=== PATIENT | male | born 1975 | race Caucasian/White ===

== ENCOUNTER 2018-07-13 01:04 | Inpatient (IN) | payer OTHER ==
[2018-07-13] MEDS ORDERED: HYDROmorphone 0.5 MG/0.5 ML SYRINGE IVP STA (02:28)
[2018-07-13] MEDS ORDERED: ONDANSETRON 4 MG/2 ML VIAL IVP STA (02:28)
[2018-07-13] MEDS: SODIUM CHLORIDE 0.9% 1,000 ML IV STA ×2 (02:39→03:52)
[2018-07-13 02:42] LABS: Basophils % (A) 0 %; Eosinophils # (A) 0.2 k/uL (0-0.7); Eosinophils % (A) 1 %; HGB 17.3 gm/dL (13.0-17.5); Lymphocytes # (A) 1.6 k/uL (1.0-4.8); Lymphocytes % (A) 15 %; MCH 34.2 pg (25.0-35.0); MCHC 36.8 g/dL (31.0-37.0); Mean Platelet Volume 8.8; Monocytes # (A) 0.5 k/uL (0-1.0); Monocytes % (A) 4 %; Neutrophils # (A) 8.4 k/uL (1.3-7.7); Neutrophils % (A) 78 %; Platelet Count 196 k/uL (150-450); RBC 5.06 m/uL (4.30-5.90); RDW 14.1 % (11.5-15.5); WBC 10.8 k/uL (3.8-10.6)
[2018-07-13 02:43] LABS: Appearance,Urine Clear (Clear); Bilirubin,Urine Negative (Negative); Blood,Urine Trace (Negative); Color,Urine Light Yellow; Glucose,Urine (UA) 4+ (Negative); Hyaline Casts,Urine 9 /lpf (0-2); Leukocyte Esterase,Urine Negative (Negative); Nitrite,Urine Negative (Negative); PH, Urine 5.5 (5.0-8.0); Protein,Urine 2+ (Negative); RBC,Urine 1 /hpf (0-5); Specific Gravity,Urine 1.028 (1.001-1.035); Urobilinogen,Urine <2.0 mg/dL (<2.0); WBC,Urine <1 /hpf (0-5)
[2018-07-13 03:00] LABS: Ketones,Urine 4+ (Negative)
--- NOTE | 2018-07-13 03:11 | XR ---
EXAM: XR Abdomen, 2 Views CLINICAL HISTORY: None. TECHNIQUE: Frontal view of the abdomen/pelvis with upright view of the abdomen. COMPARISON: No relevant prior studies available. FINDINGS: Intraperitoneal space: No free air. Gastrointestinal tract: Unremarkable. No dilation. 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 IMPRESSION: No acute findings.
[2018-07-13 03:26] LABS: Glucose 435 mg/dL (74-99)
[2018-07-13 03:27] LABS: ALT 34 U/L (21-72); AST 26 U/L (17-59); Albumin 4.6 g/dL (3.5-5.0); Alkaline Phosphatase 122 U/L (38-126); Blood Urea Nitrogen 9 mg/dL (9-20); Calcium 10.1 mg/dL (8.4-10.2); Total Bilirubin 1.1 mg/dL (0.2-1.3); Total Protein 8.1 g/dL (6.3-8.2)
[2018-07-13 03:28] LABS: Chloride 98 mmol/L (98-107); Potassium 5.2 mmol/L (3.5-5.1); Sodium 132 mmol/L (137-145)
[2018-07-13 03:31] LABS: Amylase 550 U/L (30-110); Anion Gap 23 mmol/L; Carbon Dioxide 11 mmol/L (22-30)
[2018-07-13] MEDS ORDERED: SODIUM CHLORIDE 0.9% 1,000 ML IV ONE (03:40)
[2018-07-13] MEDS ORDERED: SODIUM CHLORIDE 0.9% 500 ML 500 ML IV ONE (03:40)
[2018-07-13] MEDS ORDERED: INSULIN REGULAR 100 UNIT in SODIUM CHLORIDE 0.9% 100 ML IV SCH (03:45)
[2018-07-13] MEDS ORDERED: NALOXONE 0.4 MG/ML 1 ML VIAL IV PRN (03:46)
[2018-07-13] MEDS ORDERED: ONDANSETRON 4 MG/2 ML VIAL IVP PRN (03:46)
--- NOTE | 2018-07-13 03:54 | ED ---
Abdominal Pain HPI - General Source: patient Mode of arrival: ambulatory Limitations: no limitations <Esmer Lambert - Last Filed: 07/13/18 03:54> <Shaun Skinner - Last Filed: 07/13/18 07:46> - General Chief Complaint: Abdominal Pain Stated Complaint: Abdominal Pain Time Seen by Provider: 07/13/18 02:10 - History of Present Illness Initial Comments: 43-year-old male patient presented to the emergency department today for evaluation of upper abdominal pain. The patient states the pain started around 9 PM this evening. Describes it as a intense cramping type pain. Denies any radiation of the pain through to his back. Patient states he was nauseated and did have a couple episodes of vomiting. Denies hematemesis. Denies any constipation or diarrhea. States last bowel movement was yesterday and was normal for him. Patient denies history of acid reflux, denies excessive use of NSAIDs. Denies any fever or chills with this. Patient denies history of similar symptoms. Denies any recent travel or sick contacts. Patient denies any recent rash, fever, chills, shortness breath, chest pain, back pain, numbness, tingling, dizziness, weakness, hematuria, dysuria, urinary urgency, urinary frequency, headache, visual changes, or any other complaints. (Esmer Lambert) - Related Data Home Medications Medication Instructions Recorded Confirmed No Known Home Medications 07/13/18 07/13/18 Allergies Allergy/AdvReac Type Severity Reaction Status Date / Time No Known Allergies Allergy Verified 07/13/18 07:16 Review of Systems ROS Other: All systems not noted in ROS Statement are negative. <Esmer Lambert - Last Filed: 07/13/18 03:54> ROS Other: All systems not noted in ROS Statement are negative. <Shaun Skinner - Last Filed: 07/13/18 07:46> ROS Statement: Those systems with pertinent positive or pertinent negative responses have been documented in the HPI. Past Medical History Past Medical History: No Reported History History of Any Multi-Drug Resistant Organisms: None Reported Past Surgical History: No Surgical Hx Reported Past Psychological History: No Psychological Hx Reported Smoking Status: Current some day smoker Past Alcohol Use History: Rare Past Drug Use History: None Reported <Esmer Lambert - Last Filed: 07/13/18 03:54> General Exam Limitations: no limitations General appearance: alert, in no apparent distress, other (This is a well- developed, well-nourished adult male patient in no acute distress. Vital signs upon presentation are temperature 97.4F, pulse 117, respirations 20, blood pressure 145/112, pulse ox 98% on room air.) Eye exam: Present: normal appearance, PERRL, EOMI. Absent: scleral icterus, conjunctival injection, periorbital swelling ENT exam: Present: normal exam, normal oropharynx, mucous membranes moist Respiratory exam: Present: normal lung sounds bilaterally. Absent: respiratory distress, wheezes, rales, rhonchi, stridor Cardiovascular Exam: Present: normal rhythm, tachycardia, normal heart sounds. Absent: systolic murmur, diastolic murmur, rubs, gallop, clicks GI/Abdominal exam: Present: soft, tenderness (Mild midepigastric tenderness), normal bowel sounds. Absent: distended, guarding, rebound, rigid Neurological exam: Present: alert, oriented X3, CN II-XII intact Psychiatric exam: Present: normal affect, normal mood Skin exam: Present: warm, dry, intact, normal color. Absent: rash <Esmer Lambert - Last Filed: 07/13/18 03:54> Course Vital Signs 07/13/18 07/13/18 07/13/18 01:11 04:00 05:00 Temperature 97.4 F L 97.7 F Pulse Rate 117 H 98 98 Pulse Rate [ Pulse Oximetery ] Respiratory 20 20 20 Rate Blood Pressure 145/112 131/98 133/94 Blood Pressure [Right Arm] O2 Sat by Pulse 98 99 97 Oximetry 07/13/18 05:31 Temperature 98.6 F Pulse Rate Pulse Rate [ 105 H Pulse Oximetery ] Respiratory 18 Rate Blood Pressure Blood Pressure 139/95 [Right Arm] O2 Sat by Pulse 98 Oximetry Medical Decision Making - Lab Data Result diagrams: 07/13/18 02:14 07/13/18 02:14 - Radiology Data Radiology results: report reviewed, image reviewed <Esmer Lambert - Last Filed: 07/13/18 03:54> - Lab Data Result diagrams: 07/13/18 02:14 07/13/18 02:14 <Shaun Skinner - Last Filed: 07/13/18 07:46> - Medical Decision Making 43-year-old male patient presented to the emergency department today for evaluation of upper abdominal pain and nausea. Physical examination did reveal mild midepigastric tenderness. Labs reviewed and did reveal elevated blood sugar at 435, elevated amylase at 550. Patient also had 4+ ketones and 4+ gl ucose in his urine. Patient states that he did have history of insulin resistance was on medication for a short time but was able to reverse this with diet control. Patient does admit to increased thirst and urination over the last couple weeks. Patient's lipase is unable to be done due to a lipemic specimen, we will redraw this in the morning after patient has been fasting. Elevated amylase patient most likely has presence of pancreatitis. Patient will be admitted for IV fluids, insulin drip, and pain management. He will be admitted to Dr. Weber. (Esmer Lambert) I saw this patient in conjunction with the physician budget assistant. I performed independent history and physical exam. Agree with case management. (Shaun Skinner) - Lab Data Lab Results 07/13/18 07/13/18 07/13/18 Range/Units 02:14 02:14 02:14 WBC 10.8 H (3.8-10.6) k/uL RBC 5.06 (4.30-5.90) m/uL Hgb 17.3 (13.0-17.5) gm/dL Hct 47.0 (39.0-53.0) % MCV 93.0 (80.0-100.0) fL MCH 34.2 (25.0-35.0) pg MCHC 36.8 (31.0-37.0) g/dL RDW 14.1 (11.5-15.5) % Plt Count 196 (150-450) k/uL Neutrophils % 78 % Lymphocytes % 15 % Monocytes % 4 % Eosinophils % 1 % Basophils % 0 % Neutrophils # 8.4 H (1.3-7.7) k/uL Lymphocytes # 1.6 (1.0-4.8) k/uL Monocytes # 0.5 (0-1.0) k/uL Eosinophils # 0.2 (0-0.7) k/uL Basophils # 0.0 (0-0.2) k/uL Sodium 132 L (137-145) mmol/L Potassium 5.2 H (3.5-5.1) mmol/L Chloride 98 (98-107) mmol/L Carbon Dioxide 11 L (22-30) mmol/L Anion Gap 23 mmol/L BUN 9 (9-20) mg/dL Creatinine 0.83 (0.66-1.25) mg/dL Est GFR (CKD-EPI)AfAm >90 (>60 ml/min/1.73 sqM) Est GFR (CKD-EPI)NonAf >90 (>60 ml/min/1.73 sqM) Glucose 435 H (74-99) mg/dL Calcium 10.1 (8.4-10.2) mg/dL Total Bilirubin 1.1 (0.2-1.3) mg/dL AST 26 (17-59) U/L ALT 34 (21-72) U/L Alkaline Phosphatase 122 (38-126) U/L Troponin I <0.012 (0.000-0.034) ng/mL Total Protein 8.1 (6.3-8.2) g/dL Albumin 4.6 (3.5-5.0) g/dL Amylase 550 H* (30-110) U/L Lipase (23-300) U/L Urine Color Urine Appearance (Clear) Urine pH (5.0-8.0) Ur Specific [place] (1.001-1.035) Urine Protein (Negative) Urine Glucose (UA) (Negative) Urine Ketones (Negative) Urine Blood (Negative) Urine Nitrite (Negative) Urine Bilirubin (Negative) Urine Urobilinogen (<2.0) mg/dL Ur Leukocyte Esterase (Negative) Urine RBC (0-5) /hpf Urine WBC (0-5) /hpf Hyaline Casts (0-2) /lpf Acetone, Qual (Negative) 07/13/18 07/13/18 Range/Units 02:14 02:14 WBC (3.8-10.6) k/uL RBC (4.30-5.90) m/uL Hgb (13.0-17.5) gm/dL Hct (39.0-53.0) % MCV (80.0-100.0) fL MCH (25.0-35.0) pg MCHC (31.0-37.0) g/dL RDW (11.5-15.5) % Plt Count (150-450) k/uL Neutrophils % % Lymphocytes % % Monocytes % % Eosinophils % % Basophils % % Neutrophils # (1.3-7.7) k/uL Lymphocytes # (1.0-4.8) k/uL Monocytes # (0-1.0) k/uL Eosinophils # (0-0.7) k/uL Basophils # (0-0.2) k/uL Sodium (137-145) mmol/L Potassium (3.5-5.1) mmol/L Chloride (98-107) mmol/L Carbon Dioxide (22-30) mmol/L Anion Gap mmol/L BUN (9-20) mg/dL Creatinine (0.66-1.25) mg/dL Est GFR (CKD-EPI)AfAm (>60 ml/min/1.73 sqM) Est GFR (CKD-EPI)NonAf (>60 ml/min/1.73 sqM) Glucose (74-99) mg/dL Calcium (8.4-10.2) mg/dL Total Bilirubin (0.2-1.3) mg/dL AST (17-59) U/L ALT (21-72) U/L Alkaline Phosphatase (38-126) U/L Troponin I (0.000-0.034) ng/mL Total Protein (6.3-8.2) g/dL Albumin (3.5-5.0) g/dL Amylase (30-110) U/L Lipase (23-300) U/L Urine Color Light Yellow Urine Appearance Clear (Clear) Urine pH 5.5 (5.0-8.0) Ur Specific [place] 1.028 (1.001-1.035) Urine Protein 2+ H (Negative) Urine Glucose (UA) 4+ H (Negative) Urine Ketones 4+ H (Negative) Urine Blood Trace H (Negative) Urine Nitrite Negative (Negative) Urine Bilirubin Negative (Negative) Urine Urobilinogen <2.0 (<2.0) mg/dL Ur Leukocyte Esterase Negative (Negative) Urine RBC 1 (0-5) /hpf Urine WBC <1 (0-5) /hpf Hyaline Casts 9 H (0-2) /lpf Acetone, Qual Positive (Negative) - Radiology Data 2 views of the abdomen are obtained. Report reviewed in its entirety. Impression by Dr. Rosas shows no acute findings. (Esmer Lambert) Disposition Decision to Admit Reason: Admit from EC Decision Date: 07/13/18 Decision Time: 03:57 <Esmer Lambert - Last Filed: 07/13/18 03:54> <Shaun Skinner - Last Filed: 07/13/18 07:46> Clinical Impression: Diabetes mellitus, new onset, Acute pancreatitis Disposition: ADMITTED IP TO THIS [facility] Condition: Serious
[2018-07-13] MEDS: SODIUM CHLORIDE 0.9% 1,000 ML IV SCH ×2 (03:56→13:32)
[2018-07-13] MEDS: INSULIN REGULAR 100 UNIT in SODIUM CHLORIDE 0.9% 100 ML IV SCH ×2 (04:09→15:24)
[2018-07-13 05:12] LABS: Glucose,Whole Blood 343 mg/dL (75-99)
[2018-07-13 06:13] LABS: Glucose,Whole Blood 338 mg/dL (75-99)
[2018-07-13 07:33] LABS: Glucose,Whole Blood 290 mg/dL (75-99)
[2018-07-13 08:21] LABS: Glucose,Whole Blood 294 mg/dL (75-99)
[2018-07-13 10:20] LABS: Glucose,Whole Blood 250 mg/dL (75-99)
[2018-07-13 10:30] LABS: Glucose,Whole Blood 234 mg/dL (75-99)
[2018-07-13 11:38] LABS: Glucose,Whole Blood 227 mg/dL (75-99)
--- NOTE | 2018-07-13 12:24 | US ---
EXAMINATION TYPE: US abdomen limited DATE OF EXAM: 07/13/2018 COMPARISON: NONE CLINICAL HISTORY: Acute Pancreatitis. Pt states ABD pressure, pancreatitis EXAM MEASUREMENTS: Liver Length: 18.4 cm Gallbladder Wall: 0.2 cm CBD: 0.4 cm Right Kidney: 12.5 x 5.1 x 5.7 cm Pancreas: 3mm duct visualized, pancrease appeared heterogeneous/attenuating Liver: Difficult to penetrate, probable fatty sparing near GB, enlarged Gallbladder: wnl Evidence for sonographic Chirinos's sign: No CBD: wnl Right Kidney: wnl, lower pole partially gassed out and cortical medullary differentiation is maintai michi. There is no ascites. IMPRESSION: Probable hepatic steatosis, hepatomegaly. Some limitations the exam.
[2018-07-13 12:33] LABS: Glucose,Whole Blood 244 mg/dL (75-99)
[2018-07-13 13:15] LABS: Chloride 109 mmol/L (98-107); Potassium 4.7 mmol/L (3.5-5.1); Sodium 135 mmol/L (137-145)
[2018-07-13 13:23] LABS: Glucose,Whole Blood 236 mg/dL (75-99)
[2018-07-13 14:34] LABS: Anion Gap 16 mmol/L
[2018-07-13 14:35] LABS: Blood Urea Nitrogen 8 mg/dL (9-20); Calcium 8.8 mg/dL (8.4-10.2); Carbon Dioxide 10 mmol/L (22-30); Glucose 251 mg/dL (74-99); Total Protein 7.3 g/dL (6.3-8.2)
[2018-07-13 14:36] LABS: ALT 35 U/L (21-72); AST 33 U/L (17-59); Albumin 3.8 g/dL (3.5-5.0); Alkaline Phosphatase 84 U/L (38-126); Total Bilirubin 0.9 mg/dL (0.2-1.3)
[2018-07-13 14:41] LABS: Glucose,Whole Blood 253 mg/dL (75-99)
[2018-07-13] MEDS: D5-0.45% NACL WITH KCL 20MEQ/L 1,000 ML IV SCH ×2 (15:24→17:42)
[2018-07-13 15:36] LABS: Glucose,Whole Blood 248 mg/dL (75-99)
[2018-07-13] MEDS ORDERED: ACETAMINOPHEN TAB 325 MG TAB PO PRN (16:09)
[2018-07-13 16:38] LABS: Glucose,Whole Blood 242 mg/dL (75-99)
[2018-07-13 17:13] LABS: HDL Cholesterol 32 mg/dL (40-60)
[2018-07-13 17:21] LABS: Cholesterol 643 mg/dL (<200)
[2018-07-13 17:26] LABS: Lipase 3662 U/L (23-300)
[2018-07-13 17:30] LABS: Amylase 422 U/L (30-110)
[2018-07-13 17:40] LABS: Glucose,Whole Blood 249 mg/dL (75-99)
[2018-07-13 17:48] LABS: Basophils % (A) 0 %; Eosinophils # (A) 0.1 k/uL (0-0.7); Eosinophils % (A) 1 %; HCT 40.3 % (39.0-53.0); Lymphocytes # (A) 0.8 k/uL (1.0-4.8); Lymphocytes % (A) 18 %; MCH 36.9 pg (25.0-35.0); MCV 92.9 fL (80.0-100.0); Mean Platelet Volume 8.5; Monocytes # (A) 0.2 k/uL (0-1.0); Monocytes % (A) 4 %; Neutrophils # (A) 3.5 k/uL (1.3-7.7); Neutrophils % (A) 75 %; Platelet Count 185 k/uL (150-450); RBC 4.34 m/uL (4.30-5.90); RDW 13.9 % (11.5-15.5); WBC 4.6 k/uL (3.8-10.6)
[2018-07-13 17:49] LABS: MCHC 39.7 g/dL (31.0-37.0); Triglycerides 3309 mg/dL (<150)
[2018-07-13 18:07] LABS: ALT 33 U/L (21-72); AST 24 U/L (17-59); Albumin 3.7 g/dL (3.5-5.0); Alkaline Phosphatase 93 U/L (38-126); Anion Gap 14 mmol/L; Blood Urea Nitrogen 7 mg/dL (9-20); Calcium 8.5 mg/dL (8.4-10.2); Chloride 110 mmol/L (98-107); Glucose 251 mg/dL (74-99); Potassium 4.4 mmol/L (3.5-5.1); Sodium 133 mmol/L (137-145); Total Bilirubin 0.9 mg/dL (0.2-1.3); Total Protein 7.1 g/dL (6.3-8.2)
[2018-07-13 18:16] LABS: Carbon Dioxide 9 mmol/L (22-30)
[2018-07-13] MEDS: INSULIN ASPART (NovoLOG) 100 UNIT/ML VIAL SQ SCH (18:32)
[2018-07-13 18:43] LABS: Glucose,Whole Blood 242 mg/dL (75-99)
--- NOTE | 2018-07-13 19:04 | HP ---
HISTORY AND PHYSICAL CHIEF COMPLAINT: Abdominal pain. HISTORY OF PRESENT ILLNESS: This is the first admission for this 43-year-old white male. He came to the emergency room with epigastric and back pain and was found to have pancreatitis. He also was found to have elevated blood sugar. He has been told in the past the had "insulin resistance." He has had some nausea and vomiting. He has had no hematemesis, melena, hematochezia, etc. REVIEW OF SYSTEMS: He has had no other complaints. He has had no excessive thirst, blurred vision, history of hypertension, palpitations, frequent urination, dysuria, hematuria, etc. Past medical history, family history, personal and social histories are unremarkable. He has had no surgery and he is not on any medication. He is not allergic to any. He smokes a pack of cigarettes a day. PHYSICAL EXAMINATION: Blood pressure 125/114 with a pulse of 96, respirations of 36 and she is afebrile. In general, he appeared to be slightly pale. Skin was dry. Head, ears, eyes, nose, mouth, and throat were normal and neck veins not distended. Thyroid is not enlarged. Chest is clear. Cardiac exam demonstrates normal sinus rhythm and no murmurs or extra sounds. Abdomen is soft, nontender without any visceromegaly or masses. Bowel sounds present. Extremities normal. Neurological is intact. IMPRESSION: 1. Pancreatitis. 2. New onset diabetes mellitus. 3. Hypertension. PLAN: 1. Bed rest. 2. IV fluids. 3. Diabetic teaching. 4. Follow blood sugars. 5. Follow pancreatitis. MMODL / IJN: [id number] /
[2018-07-13 19:39] LABS: Glucose,Whole Blood 247 mg/dL (75-99)
[2018-07-13] MEDS ORDERED: ENALAPRILAT 1.25 MG/ML 1 ML VIAL IVP PRN (19:48)
[2018-07-13] MEDS: HYDROcodone/APAP 5-325MG 1 EACH TAB PO PRN (20:23)
[2018-07-13] MEDS: FENOFIBRATE 160 MG TAB PO SCH (20:23)
[2018-07-13 20:32] LABS: Glucose,Whole Blood 259 mg/dL (75-99)
[2018-07-13 20:52] LABS: ALT 36 U/L (21-72); AST 19 U/L (17-59); Albumin 3.6 g/dL (3.5-5.0); Alkaline Phosphatase 88 U/L (38-126); Anion Gap 13 mmol/L; Blood Urea Nitrogen 8 mg/dL (9-20); Calcium 8.4 mg/dL (8.4-10.2); Carbon Dioxide 12 mmol/L (22-30); Chloride 109 mmol/L (98-107); Glucose 233 mg/dL (74-99); Potassium 4.2 mmol/L (3.5-5.1); Sodium 134 mmol/L (137-145); Total Bilirubin 0.8 mg/dL (0.2-1.3); Total Protein 6.9 g/dL (6.3-8.2)
[2018-07-13] MEDS: INSULIN DETEMIR (LEVEMIR) 100 UNIT/ML SYR SQ SCH (21:34)
[2018-07-13 21:47] LABS: Glucose,Whole Blood 264 mg/dL (75-99)
[2018-07-13 22:51] LABS: Glucose,Whole Blood 234 mg/dL (75-99)
[2018-07-13 23:44] LABS: Glucose,Whole Blood 271 mg/dL (75-99)
[2018-07-14 00:33] LABS: Glucose,Whole Blood 229 mg/dL (75-99)
[2018-07-14 01:09] LABS: ALT 28 U/L (21-72); AST 18 U/L (17-59); Albumin 3.3 g/dL (3.5-5.0); Alkaline Phosphatase 80 U/L (38-126); Anion Gap 12 mmol/L; Blood Urea Nitrogen 8 mg/dL (9-20); Calcium 8.4 mg/dL (8.4-10.2); Carbon Dioxide 14 mmol/L (22-30); Chloride 108 mmol/L (98-107); Glucose 229 mg/dL (74-99); Potassium 3.9 mmol/L (3.5-5.1); Sodium 134 mmol/L (137-145); Total Bilirubin 0.8 mg/dL (0.2-1.3); Total Protein 6.2 g/dL (6.3-8.2)
[2018-07-14 01:57] LABS: Glucose,Whole Blood 223 mg/dL (75-99)
[2018-07-14] MEDS: SODIUM CHLORIDE 0.9% 1,000 ML IV SCH ×3 (02:11→20:36)
[2018-07-14 02:56] LABS: Glucose,Whole Blood 200 mg/dL (75-99)
[2018-07-14] MEDS: D5-0.45% NACL WITH KCL 20MEQ/L 1,000 ML IV SCH ×3 (03:27→14:54)
[2018-07-14] MEDS: INSULIN REGULAR 100 UNIT in SODIUM CHLORIDE 0.9% 100 ML IV SCH ×2 (03:27→12:38)
[2018-07-14 03:57] LABS: Glucose,Whole Blood 203 mg/dL (75-99)
[2018-07-14 05:15] LABS: Glucose,Whole Blood 189 mg/dL (75-99)
[2018-07-14 05:52] LABS: Glucose,Whole Blood 185 mg/dL (75-99)
[2018-07-14 06:02] LABS: ALT 38 U/L (21-72); AST 21 U/L (17-59); Albumin 3.2 g/dL (3.5-5.0); Alkaline Phosphatase 70 U/L (38-126); Anion Gap 8 mmol/L; Blood Urea Nitrogen 9 mg/dL (9-20); Calcium 8.3 mg/dL (8.4-10.2); Carbon Dioxide 17 mmol/L (22-30); Chloride 108 mmol/L (98-107); Glucose 156 mg/dL (74-99); Lipase 1089 U/L (23-300); Sodium 133 mmol/L (137-145); Total Bilirubin 0.8 mg/dL (0.2-1.3)
[2018-07-14] MEDS: INSULIN ASPART (NovoLOG) 100 UNIT/ML VIAL SQ SCH ×5 (06:31→21:15)
[2018-07-14 06:42] LABS: Glucose,Whole Blood 176 mg/dL (75-99)
[2018-07-14 07:04] LABS: Glucose,Whole Blood 165 mg/dL (75-99)
[2018-07-14 08:18] LABS: Glucose,Whole Blood 141 mg/dL (75-99)
[2018-07-14] MEDS: FENOFIBRATE 160 MG TAB PO SCH (08:47)
[2018-07-14 09:14] LABS: Glucose,Whole Blood 135 mg/dL (75-99)
[2018-07-14 10:06] LABS: Glucose,Whole Blood 179 mg/dL (75-99)
[2018-07-14 11:18] LABS: Glucose,Whole Blood 195 mg/dL (75-99)
[2018-07-14 11:51] LABS: Glucose,Whole Blood 222 mg/dL (75-99)
[2018-07-14 12:46] LABS: ALT 32 U/L (21-72); AST 21 U/L (17-59); Albumin 2.9 g/dL (3.5-5.0); Alkaline Phosphatase 68 U/L (38-126); Anion Gap 8 mmol/L; Blood Urea Nitrogen 9 mg/dL (9-20); Calcium 8.1 mg/dL (8.4-10.2); Carbon Dioxide 19 mmol/L (22-30); Chloride 106 mmol/L (98-107); Glucose 210 mg/dL (74-99); Potassium 4.2 mmol/L (3.5-5.1); Sodium 133 mmol/L (137-145); Total Bilirubin 0.9 mg/dL (0.2-1.3); Total Protein 5.6 g/dL (6.3-8.2)
--- NOTE | 2018-07-14 12:52 | P.CONS ---
History of Present Illness - Reason for Consult Consult date: 07/14/18 Abdominal pain Requesting physician: Joaquin Weber - Chief Complaint Abdominal pain - History of Present Illness 43-year-old male admitted with crampy upper abdominal pain that started yesterday with nausea vomiting. Denies hematemesis hematochezia melena diarrhea or constipation. Ultrasound abdomen possible hepatic steatosis hepatomegaly. Gallbladder within normal limits. CBD 0.4 cm. Admission white count 10.8 present in 4.6. Hemoglobin 16. Platelet 185. MCV 92. Sodium 133. Potassium 4.4. BUN 7. Creatinine 0.4. LFTs within normal limits. Lipase 3662. Amylase 550. Triglycerides 3309. Serum glucose 200-300 range. No history of pancreatitis. No history of NSAIDs or alcohol. Known history of hypertriglyceridemia with no medical maintenance. No history of documented diabetes mellitus. Presently feels bloated but pain is improved. Afebrile. Review of Systems Constitutional: Denies fever, chills, sweats, weight gain, or loss. HEENT: Negative for migraines, blurred vision or loss, earaches, drainage, tinnitus, oral mucosal lesions, dysphagia, or odynophagia. Cardiac: Negative for chest pain, arrhythmias, or palpitation. Respiratory: Negative for shortness of breath, hemoptysis, cough, or sputum p roduction. Gastrointestinal: See HPI for pertinent findings. Genitourinary: Negative for hematuria, urgency, frequency, polyuria, dysuria, or penile discharge. Musculoskeletal: Negative for muscle aches, swelling, arthritis, and arthralgias. Neurologic: Negative for stroke or TIA. Endocrine: Negative for thyroid problems. Skin: Negative for rash or itching. Psychiatric: Negative history for depression and anxiety Past Medical History Past Medical History: No Reported History History of Any Multi-Drug Resistant Organisms: None Reported Past Surgical History: No Surgical Hx Reported Past Anesthesia/Blood Transfusion Reactions: No Reported Reaction Past Psychological History: No Psychological Hx Reported Smoking Status: Former smoker Past Alcohol Use History: Rare Past Drug Use History: None Reported - Past Family History Mother Family Medical History: Musculoskeletal Disorder Additional Family Medical History / Comment(s): MS Father Family Medical History: No Reported History Medications and Allergies Home Medications Medication Instructions Recorded Confirmed Type No Known Home Medications 07/13/18 07/13/18 History Allergies Allergy/AdvReac Type Severity Reaction Status Date / Time No Known Allergies Allergy Verified 07/13/18 07:16 Physical Exam Vitals: Vital Signs Temp Pulse Resp BP Pulse Ox 07/14/18 11:41 98.3 F 114 H 18 119/82 96 07/14/18 08:00 98.4 F 122 H 18 130/84 98 07/14/18 04:00 16 07/14/18 03:51 98.6 F 117 H 16 136/91 97 07/13/18 23:44 98.4 F 120 H 16 124/86 95 07/13/18 20:12 97.9 F 130 H 15 140/91 95 07/13/18 15:20 100.5 F H 122 H 16 152/106 95 Intake and Output 07/13/18 07/14/18 07/14/18 22:59 06:59 14:59 Intake Total 72.417 48.183 237.633 Output Total 400 Balance -327.583 48.183 237.633 Intake: Intake, IV Titration 72.417 48.183 57.633 Amount Insulin Regular 100 unit 72.417 48.183 57.633 In Sodium Chloride 0.9% 100 ml @ 0.1 UNIT/KG/HR 9 .071 mls/hr IV .[id number] [facility] Rx#:[id number] Oral 180 Output: Urine 400 Other: Voiding Method Toilet Toilet # Voids 1 0 # Bowel Movements 0 Weight 92.8 kg General appearance: The patient is alert, oriented, in no acute distress. HET: Head is normocephalic and atraumatic. Pupils are equal and reactive. Oropharynx is clear without lesions. Neck: Supple without lymphadenopathy. Trachea midline. Heart: S1 S2. Regular rate and rhythm. Lungs: No crackles or wheezes are heard. Abdomen: Soft, mildly tender midepigastrium with bile bloatedness with bowel sounds. No peritoneal signs. No palpable organomegaly or masses. Extremities: Normal skin color and turgor. No cyanosis, rash, ulceration, clubbing, or edema. Radial and pedal pulses are 2/4 bilaterally. Neurological: No focal deficits. Strength and sensation are grossly intact. Results CBC & Chem 7: 07/13/18 16:38 07/14/18 12:12 Labs: Abnormal Lab Results - Last 24 Hours (Table) 07/13/18 07/13/1819 Range/Units 12:30 12:43 13:21 MCH (25.0-35.0) pg MCHC (31.0-37.0) g/dL Lymphocytes # (1.0-4.8) k/uL Sodium 135 L (137-145) mmol/L Chloride 109 H (98-107) mmol/L Carbon Dioxide 10 L (22-30) mmol/L BUN 8 L (9-20) mg/dL Creatinine 0.53 L (0.66-1.25) mg/dL Glucose 251 H (74-99) mg/dL POC Glucose (mg/dL) 244 H 236 H (75-99) mg/dL Calcium (8.4-10.2) mg/dL Total Protein (6.3-8.2) g/dL Albumin (3.5-5.0) g/dL Triglycerides (<150) mg/dL Cholesterol (<200) mg/dL HDL Cholesterol (40-60) mg/dL Amylase (30-110) U/L Lipase (23-300) U/L 07/13/18 07/13/18 07/13/18 Range/Units 14:39 15:30 16:35 MCH (25.0-35.0) pg MCHC (31.0-37.0) g/dL Lymphocytes # (1.0-4.8) k/uL Sodium (137-145) mmol/L Chloride (98-107) mmol/L Carbon Dioxide (22-30) mmol/L BUN (9-20) mg/dL Creatinine (0.66-1.25) mg/dL Glucose (74-99) mg/dL POC Glucose (mg/dL) 253 H 248 H 242 H (75-99) mg/dL Calcium (8.4-10.2) mg/dL Total Protein (6.3-8.2) g/dL Albumin (3.5-5.0) g/dL Triglycerides (<150) mg/dL Cholesterol (<200) mg/dL HDL Cholesterol (40-60) mg/dL Amylase (30-110) U/L Lipase (23-300) U/L 07/13/18 07/13/18 07/13/18 Range/Units 16:38 16:38 16:38 MCH 36.9 H (25.0-35.0) pg MCHC 39.7 H (31.0-37.0) g/dL Lymphocytes # 0.8 L (1.0-4.8) k/uL Sodium 133 L (137-145) mmol/L Chloride 110 H (98-107) mmol/L Carbon Dioxide 9 L* (22-30) mmol/L BUN 7 L (9-20) mg/dL Creatinine 0.48 L (0.66-1.25) mg/dL Glucose 251 H (74-99) mg/dL POC Glucose (mg/dL) (75-99) mg/dL Calcium (8.4-10.2) mg/dL Total Protein (6.3-8.2) g/dL Albumin (3.5-5.0) g/dL Triglycerides 3309 H (<150) mg/dL Cholesterol 643 H (<200) mg/dL HDL Cholesterol 32 L (40-60) mg/dL Amylase 422 H* (30-110) U/L Lipase 3662 H (23-300) U/L 07/13/18 07/13/18 07/13/18 Range/Units 17:36 18:39 19:35 MCH (25.0-35.0) pg MCHC (31.0-37.0) g/dL Lymphocytes # (1.0-4.8) k/uL Sodium (137-145) mmol/L Chloride (98-107) mmol/L Carbon Dioxide (22-30) mmol/L BUN (9-20) mg/dL Creatinine (0.66-1.25) mg/dL Glucose (74-99) mg/dL POC Glucose (mg/dL) 249 H 242 H 247 H (75-99) mg/dL Calcium (8.4-10.2) mg/dL Total Protein (6.3-8.2) g/dL Albumin (3.5-5.0) g/dL Triglycerides (<150) mg/dL Cholesterol (<200) mg/dL HDL Cholesterol (40-60) mg/dL Amylase (30-110) U/L Lipase (23-300) U/L 07/13/18 07/13/18 07/13/18 Range/Units 20:25 20:29 21:45 MCH (25.0-35.0) pg MCHC (31.0-37.0) g/dL Lymphocytes # (1.0-4.8) k/uL Sodium 134 L (137-145) mmol/L Chloride 109 H (98-107) mmol/L Carbon Dioxide 12 L (22-30) mmol/L BUN 8 L (9-20) mg/dL Creatinine 0.65 L (0.66-1.25) mg/dL Glucose 233 H (74-99) mg/dL POC Glucose (mg/dL) 259 H 264 H (75-99) mg/dL Calcium (8.4-10.2) mg/dL Total Protein (6.3-8.2) g/dL Albumin (3.5-5.0) g/dL Triglycerides (<150) mg/dL Cholesterol (<200) mg/dL HDL Cholesterol (40-60) mg/dL Amylase (30-110) U/L Lipase (23-300) U/L 07/13/18 07/13/18 07/14/18 Range/Units 22:49 23:34 00:28 MCH (25.0-35.0) pg MCHC (31.0-37.0) g/dL Lymphocytes # (1.0-4.8) k/uL Sodium 134 L (137-145) mmol/L Chloride 108 H (98-107) mmol/L Carbon Dioxide 14 L (22-30) mmol/L BUN 8 L (9-20) mg/dL Creatinine 0.55 L (0.66-1.25) mg/dL Glucose 229 H (74-99) mg/dL POC Glucose (mg/dL) 234 H 271 H (75-99) mg/dL Calcium (8.4-10.2) mg/dL Total Protein 6.2 L (6.3-8.2) g/dL Albumin 3.3 L (3.5-5.0) g/dL Triglycerides (<150) mg/dL Cholesterol (<200) mg/dL HDL Cholesterol (40-60) mg/dL Amylase (30-110) U/L Lipase (23-300) U/L 07/14/18 07/14/18 07/14/18 Range/Units 00:31 01:47 02:39 MCH (25.0-35.0) pg MCHC (31.0-37.0) g/dL Lymphocytes # (1.0-4.8) k/uL Sodium (137-145) mmol/L Chloride (98-107) mmol/L Carbon Dioxide (22-30) mmol/L BUN (9-20) mg/dL Creatinine (0.66-1.25) mg/dL Glucose (74-99) mg/dL POC Glucose (mg/dL) 229 H 223 H 200 H (75-99) mg/dL Calcium (8.4-10.2) mg/dL Total Protein (6.3-8.2) g/dL Albumin (3.5-5.0) g/dL Triglycerides (<150) mg/dL Cholesterol (<200) mg/dL HDL Cholesterol (40-60) mg/dL Amylase (30-110) U/L Lipase (23-300) U/L 07/14/18 07/14/18 07/14/18 Range/Units 03:45 04:49 05:37 MCH (25.0-35.0) pg MCHC (31.0-37.0) g/dL Lymphocytes # (1.0-4.8) k/uL Sodium 133 L (137-145) mmol/L Chloride 108 H (98-107) mmol/L Carbon Dioxide 17 L (22-30) mmol/L BUN (9-20) mg/dL Creatinine (0.66-1.25) mg/dL Glucose 156 H (74-99) mg/dL POC Glucose (mg/dL) 203 H 189 H (75-99) mg/dL Calcium 8.3 L (8.4-10.2) mg/dL Total Protein 6.0 L (6.3-8.2) g/dL Albumin 3.2 L (3.5-5.0) g/dL Triglycerides (<150) mg/dL Cholesterol (<200) mg/dL HDL Cholesterol (40-60) mg/dL Amylase (30-110) U/L Lipase 1089 H (23-300) U/L 07/14/18 07/14/18 07/14/18 Range/Units 05:49 06:38 07:02 MCH (25.0-35.0) pg MCHC (31.0-37.0) g/dL Lymphocytes # (1.0-4.8) k/uL Sodium (137-145) mmol/L Chloride (98-107) mmol/L Carbon Dioxide (22-30) mmol/L BUN (9-20) mg/dL Creatinine (0.66-1.25) mg/dL Glucose (74-99) mg/dL POC Glucose (mg/dL) 185 H 176 H 165 H (75-99) mg/dL Calcium (8.4-10.2) mg/dL Total Protein (6.3-8.2) g/dL Albumin (3.5-5.0) g/dL Triglycerides (<150) mg/dL Cholesterol (<200) mg/dL HDL Cholesterol (40-60) mg/dL Amylase (30-110) U/L Lipase (23-300) U/L 07/14/18 07/14/18 07/14/18 Range/Units 08:06 09:13 10:04 MCH (25.0-35.0) pg MCHC (31.0-37.0) g/dL Lymphocytes # (1.0-4.8) k/uL Sodium (137-145) mmol/L Chloride (98-107) mmol/L Carbon Dioxide (22-30) mmol/L BUN (9-20) mg/dL Creatinine (0.66-1.25) mg/dL Glucose (74-99) mg/dL POC Glucose (mg/dL) 141 H 135 H 179 H (75-99) mg/dL Calcium (8.4-10.2) mg/dL Total Protein (6.3-8.2) g/dL Albumin (3.5-5.0) g/dL Triglycerides (<150) mg/dL Cholesterol (<200) mg/dL HDL Cholesterol (40-60) mg/dL Amylase (30-110) U/L Lipase (23-300) U/L 07/14/18 07/14/18 Range/Units 11:06 11:49 MCH (25.0-35.0) pg MCHC (31.0-37.0) g/dL Lymphocytes # (1.0-4.8) k/uL Sodium (137-145) mmol/L Chloride (98-107) mmol/L Carbon Dioxide (22-30) mmol/L BUN (9-20) mg/dL Creatinine (0.66-1.25) mg/dL Glucose (74-99) mg/dL POC Glucose (mg/dL) 195 H 222 H (75-99) mg/dL Calcium (8.4-10.2) mg/dL Total Protein (6.3-8.2) g/dL Albumin (3.5-5.0) g/dL Triglycerides (<150) mg/dL Cholesterol (<200) mg/dL HDL Cholesterol (40-60) mg/dL Amylase (30-110) U/L Lipase (23-300) U/L US - abdomen: report reviewed (Dr. Helton) Assessment and Plan (1) Acute pancreatitis Narrative/Plan: Acute pancreatitis suspected related to hypertriglyceridemia Current Visit: Yes Status: Acute Code(s): K85.90 - ACUTE PANCREATITIS WITHOUT NECROSIS OR INFECTION, UNSP SNOMED Code(s): 150223165 (2) Hypertriglyceridemia Current Visit: Yes Status: Acute Code(s): E78.1 - PURE HYPERGLYCERIDEMIA SNOMED Code(s): 472585614 Plan: 1. Light liquid diet as tolerated with protein shakes. Triglyceride control. Glycemic control. Daily monitoring of pancreatic enzymes, electrolytes CBC. Will follow with you. Thank you for this kind referral and the opportunity to participate in the care of your patient. This consultation was discussed with Dr. Helton. The impression and plan of care have been directed as dictated.
[2018-07-14 13:05] LABS: Glucose,Whole Blood 232 mg/dL (75-99)
[2018-07-14] MEDS: HYDROcodone/APAP 5-325MG 1 EACH TAB PO PRN (13:28)
[2018-07-14 13:53] VITALS: BMI 28.5
--- NOTE | 2018-07-14 14:01 | CDI ---
Documentation Clarification Form Date: 07/14/2018 1:36:00 PM From: Opal Turpin RN, CCDS Admit Date: 07/13/2018 4:16:00 AM Patient Name: Kale Anderson Visit Number: [id number] Discharge Date: ATTENTION: The Clinical Documentation Specialists (CDI) and [facility] Coding Staff appreciate your assistance in clarifying documentation. Please respond to the clarification below the line at the bottom and electronically sign. The CDI & [facility] Coding staff will review the response and follow-up if needed. Please note: Queries are made part of the Legal Health Record. If you have any questions, please contact the author of this message via ITS. Dr. Joaquin Weber The patient has diabetes, as indicated in the ED evaluation; your H&P and ongoing progress notes. History/Risk Factors: No Reported History, Current same day smoker Clinical Indicators: 43-year-old male with complaints of upper abdominal pain, nausea and vomiting. He does admit to increased thirst and urination over the last couple weeks. Labs: Amylase 550, Lipase 3662; UA 4+ ketones, 4+ glucose. RBS 435, Acetone, Positive Patient he did have history of insulin resistance was on medication for a short time but was able to reverse this with diet control. Treatment: Insulin drip IV Fluids Monitor Glucose In order to capture the severity of Illness and necessary documentation specificity, please clarify: DM Type 1 DM Type 2 DM due to underlying condition, specify Other, please specify Unable to Determine Please document any body system complications or specific manifestations related to the diabetes: Ketoacidosis (Acetone-Positive) Hyperglycemia Hyperosmolarity Other condition (Last Revision: January 2017) MTDD
[2018-07-14 14:05] LABS: Glucose,Whole Blood 277 mg/dL (75-99)
[2018-07-14 15:22] LABS: Glucose,Whole Blood 294 mg/dL (75-99)
[2018-07-14 16:06] LABS: Hemoglobin A1C 15.5 % (4.0-6.0)
[2018-07-14 17:19] LABS: Glucose,Whole Blood 259 mg/dL (75-99)
[2018-07-14 18:05] LABS: Glucose,Whole Blood 282 mg/dL (75-99)
[2018-07-14 20:34] LABS: Glucose,Whole Blood 214 mg/dL (75-99)
[2018-07-14] MEDS: INSULIN DETEMIR (LEVEMIR) 100 UNIT/ML SYR SQ SCH (21:16)
--- NOTE | 2018-07-14 22:02 | PN ---
PROGRESS NOTE CHIEF COMPLAINT: Acute pancreatitis. HISTORY OF PRESENT ILLNESS: This gentleman is still having quite a bit of abdominal pain, but it is improving slightly. Sugars are remaining high and he will be started on a basal bolus program. PHYSICAL EXAM: Chest is clear. Cardiac exam is normal and he is still a bit tender over the epigastrium. IMPRESSION: 1. Pancreatitis. 2. Hypertriglyceridemia. 3. Uncontrolled new onset diabetes mellitus. PLAN: Add basal bolus insulin and continue with IV fluids. MMWAGNERL / RAISSAN: [id number] /
[2018-07-15 03:32] LABS: Glucose,Whole Blood 213 mg/dL (75-99)
[2018-07-15 05:56] LABS: Glucose,Whole Blood 224 mg/dL (75-99)
[2018-07-15] MEDS: SODIUM CHLORIDE 0.9% 1,000 ML IV SCH ×2 (06:06→17:08)
[2018-07-15] MEDS: HYDROcodone/APAP 5-325MG 1 EACH TAB PO PRN ×2 (06:46→17:30)
[2018-07-15] MEDS: INSULIN ASPART (NovoLOG) 100 UNIT/ML VIAL SQ SCH ×7 (06:47→21:18)
[2018-07-15 07:19] LABS: Amylase 39 U/L (30-110); Lipase 339 U/L (23-300)
[2018-07-15] MEDS: FENOFIBRATE 160 MG TAB PO SCH (08:29)
[2018-07-15 11:42] LABS: Glucose,Whole Blood 231 mg/dL (75-99)
[2018-07-15 15:55] LABS: ALT 29 U/L (21-72); AST 20 U/L (17-59); Albumin 2.9 g/dL (3.5-5.0); Alkaline Phosphatase 69 U/L (38-126); Amylase 34 U/L (30-110); Anion Gap 8 mmol/L; Blood Urea Nitrogen 10 mg/dL (9-20); Calcium 8.3 mg/dL (8.4-10.2); Carbon Dioxide 21 mmol/L (22-30); Chloride 105 mmol/L (98-107); Glucose 209 mg/dL (74-99); Lipase 255 U/L (23-300); Potassium 3.5 mmol/L (3.5-5.1); Sodium 134 mmol/L (137-145); Total Bilirubin 0.7 mg/dL (0.2-1.3); Total Protein 5.5 g/dL (6.3-8.2); Triglycerides 459 mg/dL (<150)
[2018-07-15 16:16] LABS: Basophils % (A) 0 %; Eosinophils # (A) 0.1 k/uL (0-0.7); Eosinophils % (A) 3 %; HCT 35.7 % (39.0-53.0); Lymphocytes # (A) 1.5 k/uL (1.0-4.8); Lymphocytes % (A) 31 %; MCHC 32.8 g/dL (31.0-37.0); MCV 94.3 fL (80.0-100.0); Mean Platelet Volume 8.2; Monocytes # (A) 0.3 k/uL (0-1.0); Monocytes % (A) 7 %; Neutrophils # (A) 2.8 k/uL (1.3-7.7); Neutrophils % (A) 57 %; Platelet Count 149 k/uL (150-450); RBC 3.79 m/uL (4.30-5.90); RDW 13.8 % (11.5-15.5); WBC 4.9 k/uL (3.8-10.6)
--- NOTE | 2018-07-15 16:17 | PN ---
PROGRESS NOTE CHIEF COMPLAINT: Pancreatitis. HISTORY OF PRESENT ILLNESS: This gentleman is doing very slightly better, but he still has a lot of epigastric pain. Blood sugars are improving. They are still slightly elevated. PHYSICAL EXAM: Chest is clear. Cardiac exam is normal. He is table tender sludge over the epigastrium. IMPRESSION: 1. Pancreatitis. 2. Hypertriglyceridemia. 3. Uncontrolled diabetes. 4. Low-grade fever. PLAN: Continue to monitor his pancreatic studies as well as white count and Chem profile. MMODL / IJN: [id number] /
[2018-07-15 16:22] LABS: Glucose,Whole Blood 216 mg/dL (75-99)
[2018-07-15 16:24] LABS: HGB 11.7 gm/dL (13.0-17.5)
--- NOTE | 2018-07-15 16:50 | P.PN ---
Subjective Progress Note Date: 07/15/18 Principal diagnosis: Pancreatitis, elevated triglycerides Patient is seen lying in bed, still reporting some abdominal pain, however improved from yesterday. Tolerating diet. Does report passing flatus. Objective - Vital Signs Vital signs: Vital Signs Temp 98.3 F 07/15/18 15:25 Pulse 91 07/15/18 15:25 Resp 16 07/15/18 15:25 BP 100/57 07/15/18 15:25 Pulse Ox 96 07/15/18 15:25 Intake & Output 07/14/18 07/15/18 07/15/18 18:59 06:59 18:59 Intake Total 441.400 120 Balance 441.400 120 Weight 92.8 kg 95 kg Intake: Intake, IV Titration 81.400 Amount Insulin Regular 100 unit 81.400 In Sodium Chloride 0.9% 100 ml @ 0.1 UNIT/KG/HR 9 .071 mls/hr IV .[id number] [facility] Rx#:[id number] Oral 360 120 Other: Voiding Method Toilet Toilet Toilet # Voids 0 1 2 # Bowel Movements 0 - Exam On physical examination, patient appears comfortable in no apparent distress. HEAD: Normocephalic, atraumatic. EYES: No scleral icterus. No conjunctival injection. MOUTH: No lesions, tongue midline. NECK: Trachea midline, no gross abnormalities. CHEST: Clear to auscultation with no wheezing or rhonchi appreciated. HEART: Regular rate and rhythm. ABDOMEN: Soft, diffusely tender to deep palpation. Bowel sounds are positive. No organomegaly. No guarding or rigidity. EXTREMITIES: No pedal edema. SKIN: No rashes, no jaundice. NEUROLOGIC: Alert and oriented x3. No focal deficits. - Labs CBC & Chem 7: 07/15/18 15:26 07/15/18 15:26 Labs: Abnormal Lab Results - Last 24 Hours (Table) 07/14/18 07/14/18 07/14/18 Range/Units 17:18 18:04 20:32 RBC (4.30-5.90) m/uL Hgb (13.0-17.5) gm/dL Hct (39.0-53.0) % Plt Count (150-450) k/uL Sodium (137-145) mmol/L Carbon Dioxide (22-30) mmol/L Creatinine (0.66-1.25) mg/dL Glucose (74-99) mg/dL POC Glucose (mg/dL) 259 H 282 H 214 H (75-99) mg/dL Calcium (8.4-10.2) mg/dL Total Protein (6.3-8.2) g/dL Albumin (3.5-5.0) g/dL Triglycerides (<150) mg/dL Lipase (23-300) U/L 07/15/18 07/15/18 07/15/18 Range/Units 03:29 05:53 06:55 RBC (4.30-5.90) m/uL Hgb (13.0-17.5) gm/dL Hct (39.0-53.0) % Plt Count (150-450) k/uL Sodium (137-145) mmol/L Carbon Dioxide (22-30) mmol/L Creatinine (0.66-1.25) mg/dL Glucose (74-99) mg/dL POC Glucose (mg/dL) 213 H 224 H (75-99) mg/dL Calcium (8.4-10.2) mg/dL Total Protein (6.3-8.2) g/dL Albumin (3.5-5.0) g/dL Triglycerides (<150) mg/dL Lipase 339 H (23-300) U/L 07/15/18 07/15/18 07/15/18 Range/Units 11:32 15:26 15:26 RBC 3.79 L (4.30-5.90) m/uL Hgb 11.7 L D (13.0-17.5) gm/dL Hct 35.7 L (39.0-53.0) % Plt Count 149 L (150-450) k/uL Sodium 134 L (137-145) mmol/L Carbon Dioxide 21 L (22-30) mmol/L Creatinine 0.56 L (0.66-1.25) mg/dL Glucose 209 H (74-99) mg/dL POC Glucose (mg/dL) 231 H (75-99) mg/dL Calcium 8.3 L (8.4-10.2) mg/dL Total Protein 5.5 L (6.3-8.2) g/dL Albumin 2.9 L (3.5-5.0) g/dL Triglycerides 459 H (<150) mg/dL Lipase (23-300) U/L 07/15/18 Range/Units 16:20 RBC (4.30-5.90) m/uL Hgb (13.0-17.5) gm/dL Hct (39.0-53.0) % Plt Count (150-450) k/uL Sodium (137-145) mmol/L Carbon Dioxide (22-30) mmol/L Creatinine (0.66-1.25) mg/dL Glucose (74-99) mg/dL POC Glucose (mg/dL) 216 H (75-99) mg/dL Calcium (8.4-10.2) mg/dL Total Protein (6.3-8.2) g/dL Albumin (3.5-5.0) g/dL Triglycerides (<150) mg/dL Lipase (23-300) U/L Microbiology - Last 24 Hours (Table) 07/13/18 16:38 Blood Culture - Preliminary Blood No Growth after 24 hours 07/13/18 16:18 Blood Culture - Preliminary Blood No Growth after 24 hours Assessment and Plan (1) Acute pancreatitis Narrative/Plan: Patient presenting with complaints of abdominal pain with no history of recent alcohol consumption or findings on ultrasound of biliary etiology. It is felt at this time the patient's symptoms are likely secondary to hypertriglyceridemia. He has been initiated on fenofibrate. Reporting some improvement of symptoms today. Current Visit: Yes Status: Acute Code(s): K85.90 - ACUTE PANCREATITIS WITHOUT NECROSIS OR INFECTION, UNSP SNOMED Code(s): 076648867 (2) Hypertriglyceridemia Narrative/Plan: Patient initiated on fenofibrate, repeat triglycerides 459 today. Current Visit: Yes Status: Acute Code(s): E78.1 - PURE HYPERGLYCERIDEMIA SNOMED Code(s): 482231786 Plan: Supportive care Diet as tolerated, currently on consistent carbohydrates Continue fluid hydration, currently at 100 mL/h Continue pain control Encourage ambulation Continue to monitor symptoms Thank you for allowing us to participate in the care of the patient we will continue to follow
[2018-07-15 20:48] LABS: Glucose,Whole Blood 203 mg/dL (75-99)
[2018-07-15] MEDS ORDERED: INSULIN DETEMIR (LEVEMIR) 100 UNIT/ML SYR SQ SCH (21:00)
[2018-07-16] MEDS: SODIUM CHLORIDE 0.9% 1,000 ML IV SCH ×3 (04:32→21:10)
[2018-07-16 06:37] LABS: Glucose,Whole Blood 195 mg/dL (75-99)
[2018-07-16] MEDS: HYDROcodone/APAP 5-325MG 1 EACH TAB PO PRN (06:57)
[2018-07-16] MEDS: INSULIN ASPART (NovoLOG) 100 UNIT/ML VIAL SQ SCH ×7 (07:19→21:09)
[2018-07-16] MEDS: FENOFIBRATE 160 MG TAB PO SCH (08:50)
[2018-07-16 12:03] LABS: Glucose,Whole Blood 203 mg/dL (75-99)
--- NOTE | 2018-07-16 16:06 | PN ---
PROGRESS NOTE CHIEF COMPLAINT: Pancreatitis. HISTORY OF PRESENT ILLNESS: This gentleman is doing well. Pain is slowly improving. His blood sugars are still high, but they are improving. Triglycerides and lipase are down to normal. PHYSICAL EXAM: Chest is clear. Cardiac exam is normal. 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 IMPRESSION: 1. Pancreatitis. 2. Hypertriglyceridemia. 3. Uncontrolled diabetes. PLAN: Increase insulin again today, but he will probably be able to go home tomorrow. MMODL / IJN: [id number] /
[2018-07-16 16:39] LABS: Glucose,Whole Blood 184 mg/dL (75-99)
--- NOTE | 2018-07-16 18:45 | P.PN ---
Subjective Progress Note Date: 07/16/18 Principal diagnosis: Pancreatitis, elevated triglycerides The patient is seen sitting bedside. He reports that he is tolerating his advance diet. Passing flatus but no bowel movements yet. He has been ambulating. Objective - Vital Signs Vital signs: Vital Signs Temp 98.1 F 07/16/18 08:45 Pulse 85 07/16/18 08:45 Resp 18 07/16/18 08:45 BP 116/80 07/16/18 08:45 Pulse Ox 85 L 07/16/18 08:45 Intake & Output 07/15/18 07/16/18 07/16/18 18:59 06:59 18:59 Intake Total 360 360 Balance 360 360 Weight 96.1 kg Intake: Oral 360 360 Other: Voiding Method Toilet Toilet Toilet # Voids 2 1 - Exam On physical examination, patient appears comfortable in no apparent distress. HEAD: Normocephalic, atraumatic. EYES: No scleral icterus. No conjunctival injection. MOUTH: No lesions, tongue midline. NECK: Trachea midline, no gross abnormalities. CHEST: Clear to auscultation with no wheezing or rhonchi appreciated. HEART: Regular rate and rhythm. ABDOMEN: Soft, less tender to palpation. Bowel sounds are positive. No organomegaly. No guarding or rigidity. EXTREMITIES: No pedal edema. SKIN: No rashes, no jaundice. NEUROLOGIC: Alert and oriented x3. No focal deficits. - Labs CBC & Chem 7: 07/15/18 15:26 07/15/18 15:26 Labs: Abnormal Lab Results - Last 24 Hours (Table) 07/15/18 07/15/18 07/15/18 Range/Units 11:32 15:26 15:26 RBC 3.79 L (4.30-5.90) m/uL Hgb 11.7 L D (13.0-17.5) gm/dL Hct 35.7 L (39.0-53.0) % Plt Count 149 L (150-450) k/uL Sodium 134 L (137-145) mmol/L Carbon Dioxide 21 L (22-30) mmol/L Creatinine 0.56 L (0.66-1.25) mg/dL Glucose 209 H (74-99) mg/dL POC Glucose (mg/dL) 231 H (75-99) mg/dL Calcium 8.3 L (8.4-10.2) mg/dL Total Protein 5.5 L (6.3-8.2) g/dL Albumin 2.9 L (3.5-5.0) g/dL Triglycerides 459 H (<150) mg/dL 07/15/18 07/15/18 07/16/18 Range/Units 16:20 20:46 06:33 RBC (4.30-5.90) m/uL Hgb (13.0-17.5) gm/dL Hct (39.0-53.0) % Plt Count (150-450) k/uL Sodium (137-145) mmol/L Carbon Dioxide (22-30) mmol/L Creatinine (0.66-1.25) mg/dL Glucose (74-99) mg/dL POC Glucose (mg/dL) 216 H 203 H 195 H (75-99) mg/dL Calcium (8.4-10.2) mg/dL Total Protein (6.3-8.2) g/dL Albumin (3.5-5.0) g/dL Triglycerides (<150) mg/dL Microbiology - Last 24 Hours (Table) 07/13/18 16:38 Blood Culture - Preliminary Blood No Growth after 48 hours 07/13/18 16:18 Blood Culture - Preliminary Blood No Growth after 48 hours Assessment and Plan (1) Acute pancreatitis Narrative/Plan: Patient presenting with complaints of abdominal pain with no history of recent alcohol consumption or findings on ultrasound of biliary etiology. It is felt at this time the patient's symptoms are likely secondary to hypertriglyceridemia. He has been initiated on fenofibrate. Reporting some improvement of symptoms today. Current Visit: Yes Status: Acute Code(s): K85.90 - ACUTE PANCREATITIS WITHOUT NECROSIS OR INFECTION, UNSP SNOMED Code(s): 475760186 (2) Hypertriglyceridemia Narrative/Plan: Patient initiated on fenofibrate, repeat triglycerides 459. Current Visit: Yes Status: Acute Code(s): E78.1 - PURE HYPERGLYCERIDEMIA SNOMED Code(s): 394153108 Plan: Supportive care Diet as tolerated, currently on consistent carbohydrates Continue pain control Encourage ambulation Continue to monitor symptoms Thank you for allowing us to participate in the care of the patient we will continue to follow
[2018-07-16 19:59] VITALS: RESP 18
[2018-07-16 21:00] LABS: Glucose,Whole Blood 193 mg/dL (75-99)
[2018-07-16] MEDS ORDERED: INSULIN DETEMIR (LEVEMIR) 100 UNIT/ML SYR SQ SCH (21:00)
[2018-07-17 00:08] LABS: Glucose,Whole Blood 214 mg/dL (75-99)
[2018-07-17] MEDS: HYDROcodone/APAP 5-325MG 1 EACH TAB PO PRN (05:11)
[2018-07-17 05:20] VITALS: BP 117/83; PULSE 72; TEMP 96.8
[2018-07-17 07:23] LABS: Glucose,Whole Blood 159 mg/dL (75-99)
[2018-07-17] MEDS: INSULIN ASPART (NovoLOG) 100 UNIT/ML VIAL SQ SCH ×2 (07:41)
[2018-07-17] MEDS: FENOFIBRATE 160 MG TAB PO SCH (07:41)
[2018-07-17] MEDS: SODIUM CHLORIDE 0.9% 1,000 ML IV SCH (07:42)
--- NOTE | 2018-07-17 14:22 | P.PN ---
Subjective Progress Note Date: 07/17/18 Principal diagnosis: Pancreatitis, elevated triglycerides The patient is seen sitting bedside. Reporting that is feeling much better. Abdominal pain is much improved. He had a bowel movement today. No nausea vomiting or diarrhea reported. Objective - Vital Signs Vital signs: Vital Signs Temp 96.8 F L 07/17/18 05:19 Pulse 72 07/17/18 05:19 Resp 18 07/17/18 05:19 BP 117/83 07/17/18 05:19 Pulse Ox 97 07/17/18 05:19 Intake & Output 07/16/18 07/17/18 07/17/18 18:59 06:59 18:59 Intake Total 360 400 Balance 360 400 Intake: Oral 360 400 Other: Voiding Method Toilet Toilet # Voids 1 1 # Bowel Movements 0 - Exam On physical examination, patient appears comfortable in no apparent distress. HEAD: Normocephalic, atraumatic. EYES: No scleral icterus. No conjunctival injection. MOUTH: No lesions, tongue midline. NECK: Trachea midline, no gross abnormalities. CHEST: Clear to auscultation with no wheezing or rhonchi appreciated. HEART: Regular rate and rhythm. ABDOMEN: Soft, less tender to palpation. Bowel sounds are positive. No organomegaly. No guarding or rigidity. EXTREMITIES: No pedal edema. SKIN: No rashes, no jaundice. NEUROLOGIC: Alert and oriented x3. No focal deficits. - Labs CBC & Chem 7: 07/15/18 15:26 07/15/18 15:26 Labs: Abnormal Lab Results - Last 24 Hours (Table) 07/16/18 07/16/18 07/16/18 Range/Units 11:42 16:31 20:58 POC Glucose (mg/dL) 203 H 184 H 193 H (75-99) mg/dL 07/17/18 07/17/18 Range/Units 00:03 07:08 POC Glucose (mg/dL) 214 H 159 H (75-99) mg/dL Microbiology - Last 24 Hours (Table) 07/13/18 16:38 Blood Culture - Preliminary Blood No Growth after 72 hours 07/13/18 16:18 Blood Culture - Preliminary Blood No Growth after 72 hours Assessment and Plan (1) Acute pancreatitis Narrative/Plan: Patient presenting with complaints of abdominal pain with no history of recent alcohol consumption or findings on ultrasound of biliary etiology. It is felt at this time the patient's symptoms are likely secondary to hypertriglyceridemia. He has been initiated on fenofibrate. Reporting some improvement of symptoms today. Status: Acute Code(s): K85.90 - ACUTE PANCREATITIS WITHOUT NECROSIS OR INFECTION, UNSP SNOMED Code(s): 377059572 (2) Hypertriglyceridemia Narrative/Plan: Patient initiated on fenofibrate, repeat triglycerides 459. Status: Acute Code(s): E78.1 - PURE HYPERGLYCERIDEMIA SNOMED Code(s): 297176779 Plan: Supportive care Diet as tolerated, currently on consistent carbohydrates Continue pain control Encourage ambulation Okay for discharge from GI standpoint Thank you for allowing us to participate in the care of the patient the gastroenterology service will stand by, please call us back with any questions o r concerns
--- NOTE | 2018-07-17 19:44 | DS ---
DISCHARGE SUMMARY CHIEF COMPLAINT: Abdominal pain. HISTORY OF PRESENT ILLNESS AND PHYSICAL EXAMINATION: Details of this man's history and physical can be found in the initial workup. LABORATORY STUDIES: While he was the hospital he had laboratory studies, details of which can be found in the laboratory section of his chart. COURSE IN THE HOSPITAL: After admission he was placed on bedrest and started on IV fluids and analgesics. His triglycerides came back extremely high and blood sugars were out of control. He was started on insulin and fenofibrate. Sugars were gradually brought under control, the pain was subsiding, lipase was dropping, and it was felt he could be discharged. He will go home on fenofibrate along with insulin and will be seen in the office in several days. FINAL DIAGNOSES: 1. Acute pancreatitis. 2. Hypertriglyceridemia. 3. Newly diagnosed uncontrolled diabetes mellitus. OPERATIONS: None. CONSULTATIONS: None. He is improved. MMDIANA / ARTEMIO: [id number] /
--- NOTE | 2018-07-22 13:16 | MISC ---
MISCELLANOUS REPORT QUERY It is type 2 secondary to acute pancreatitis and that is with hyperglycemia. MMODL / IJN: [id number] /
== END 2018-07-17 12:31 | disposition home or self-care (01) | DRG 440 ==
LOC: EC 01:04 → 4MS4W 04:16 → 3SCARD 04:59 → UNDODISIN 07-14 16:07 → 4MS4W 07-16 22:50
PROVIDERS: ADMIT Family Medicine; ATTEND Family Medicine
DX: K85.90 Acute pancreatitis without necrosis or infection, unspecified (principal); E11.65 Type 2 diabetes mellitus with hyperglycemia; E78.1 Pure hyperglyceridemia; I10 Essential (primary) hypertension; Z71.3 Dietary counseling and surveillance; Z87.891 Personal history of nicotine dependence; Z82.0 Family history of epilepsy and other diseases of the nervous system
CPT/HCPCS: 36415; 74018; 76705; 80053; 80061; 81001; 82009; 82150; 83036; 83690; 84478; 84484; 85025; 87040; 93005; 96361; 96374; 96375; 96376; 99285